=== PATIENT | female | born 1990 | race Caucasian/White ===

== ENCOUNTER 2016-10-11 14:38 | Emergency (ER) | payer MEDICAID ==
--- NOTE | 2016-10-11 15:11 | RADIOLOGY REPORT ---
HISTORY: Trauma. COMPARISON: None. TECHNIQUE: AP view of both calcanei and lateral view of the left calcaneus. FINDINGS: No acute calcaneal fractures are identified. There is a probable tiny bone island in the left calcane us. Otherwise, there is normal bone mineralization. The cortex appears intact. The soft tissues appea r unremarkable. IMPRESSION: No acute fracture. Final Electronic Signature: This report was electronically signed by Marin Blas MD on 10/11/2016 3 :09 PM. michael /
--- NOTE | 2016-10-11 15:12 | RADIOLOGY REPORT ---
HISTORY: Trauma. COMPARISON: AP view of both calcanei and lateral view of the left calcaneus obtained at the same time. TECHNIQUE: Lateral view right calcaneus. FINDINGS: There is no evidence of acute fracture. There is normal bone mineralization. The cortex appears intac t. The soft tissues appear unremarkable. IMPRESSION: No acute fracture. Final Electronic Signature: This report was electronically signed by Marin Blas MD on 10/11/2016 3 :10 PM. michael /
--- NOTE | 2016-10-11 15:23 | ER PHYSICIAN DOCUMENTATION ---
Physician Documentation [facility] Name:Preethi Gonzales Age:25 yrs Sex:Female :1990 Arrival Date:10/11/2016 Time:14:38 Bed5 Private MD: Emanuel Vasquez Disposition: 10/11/16 15:14 Discharged to Home/Self Care. Impression: Foot Contusion. - Condition is Good. - Discharge Instructions: CONTUSION, Foot. - Medical Reconciliation form form. - Follow up: Private Physician; When: As needed; Reason: Continuance of care. - Problem is new. - Symptoms have improved. HPI: 10/11 18:39 This 25 yrs old Female presents to ER via Private Vehicle with complaints of jm Foot Injury. 15:00 The patient presents with an injury, pain, that is acute. The complaints affect the jm Bilateral heels . Context: Mechanism of Injury: Axial Compression the patient can fully bear weight. Onset: The symptom(s)/episode began/occurred today, 2 hour(s) ago. Associated signs and symptoms: Pertinent positives: swelling, Pertinent negatives: calf tenderness. Severity of symptoms: in the emergency department the symptoms are unchanged. The patient has not experienced similar symptoms in the past. Pt was bouldering and fell about 15-20 feet landing on her feet. Pt was able to hike out, but both of her heels hurt. . Historical: - Allergies: No known drug Allergies; - Home Meds: 1. None - PMHx: None; - PSHx: None; - Ebola Screening: : Patient negative for fever greater than or equal to 101.5 degrees Fahrenheit, and additional compatible Ebola Virus Disease symptoms. Patient denies exposure to infectious person. Patient denies travel to an Ebola-affected area in the 21 days before illness onset. No symptoms or risks identified at this time. . - Immunization history: Flu Vaccine < 1 year. - Social history: Smoking status: Patient states was never smoker of tobacco. Patient/guardian denies using alcohol, street drugs, IV drugs, marijuana. ROS: 19:27 MS/extremity: Positive for injury or acute deformity, ecchymosis, pain, swelling. jm 19:27 Abdomen/GI: Negative for abdominal pain, nausea, vomiting. 19:27 Skin: Positive for swelling. Exam: 19:27 Constitutional: The patient appears alert, awake, comfortable. 19:27 ENT: Mouth: is normal, Posterior pharynx: is normal. 19:27 Neck: C-spine: appears grossly normal, Thyroid: appears normal. 19:27 Musculoskeletal/extremity: Extremities: bilateral heel contusions. , ROM: Pulses: are normal with no appreciated deficits. 19:27 Neuro: Mentation: is normal, Memory: is normal. 19:27 Psych: Behavior/mood is pleasant, cooperative, Affect is calm. Vital Signs: 14:51 BP 118 / 72; Pulse 64; Resp 16; Temp 98.4; Pulse Ox 95% on R/A; sc1 MDM: 14:40 Patient medically screened. 15:00 Differential diagnosis: fracture, sprain. Data reviewed: vital signs, nurses notes, jm radiologic studies, plain films, and as a result, I will discharge patient. Test interpretation: by ED physician or midlevel provider: plain radiologic studies. Counseling: I had a detailed discussion with the patient and/or guardian regarding: the historical points, exam findings, and any diagnostic results supporting the discharge/admit diagnosis, radiology results. ED course: No calcaneus fx noted. . 10/11 15:13 Order name: CALCANEUS; [address] [place] [id number] EDMS 10/11 15:13 Order name: CALCANEUS; [address] [place] [id number] EDMS Dispensed Medications: No medications were administered Signatures: Rasheed Hunt, RN VIRGEN tg Susan Arambula RN RN sc1 Emanuel Haines MD MD
--- NOTE | 2016-10-11 15:23 | ER NURSING DOCUMENTATION ---
Nurse's Notes [facility] Name:Preethi Gonzales Age:25 yrs Sex:Female :1990 Arrival Date:10/11/2016 Time:14:38 Bed5 Private MD: Diagnosis:Foot Contusion Presentation: 10/11 14:46 Acuity: VENICE 3 tg 14:47 Presenting complaint: Patient states: approx 3 hours ago, pt was rock climbing on [place] [address] and the rope gave way and pt. fell approx. 20 feet landing on both heels then falling backwards on buttocks. c/o more pain on the right heel than the left. Transition of care: patient was not received from another setting of care. Notified ED Physician of patient's arrival and CC Zaki Jimenez notified. 14:47 Method Of Arrival: Private Vehicle il1 Triage Assessment: 14:51 General: Appears in no apparent distress, well developed, well nourished, well groomed, sc1 Behavior is cooperative, pleasant. Pain: Complains of pain in bilateral heels. Musculoskeletal: Circulation, motion, and sensation intact Capillary refill < 3 seconds. Historical: - Allergies: No known drug Allergies; - Home Meds: 1. None - PMHx: None; - PSHx: None; - Ebola Screening: : Patient negative for fever greater than or equal to 101.5 degrees Fahrenheit, and additional compatible Ebola Virus Disease symptoms. Patient denies exposure to infectious person. Patient denies travel to an Ebola-affected area in the 21 days before illness onset. No symptoms or risks identified at this time. . - Immunization history: Flu Vaccine < 1 year. - Social history: Smoking status: Patient states was never smoker of tobacco. Patient/guardian denies using alcohol, street drugs, IV drugs, marijuana. Screenin:53 Infectious Disease Risk None. Abuse screen: Denies threats or abuse. Nutritional sc1 screening: No deficits noted. Vital Signs: 14:51 BP 118 / 72; Pulse 64; Resp 16; Temp 98.4; Pulse Ox 95% on R/A; sc1 ED Course: 14:39 Patient arrived in ED. arc 14:40 Emanuel Haines MD is Attending Physician. jm 14:46 Triage completed. tg 14:47 Susan Arambula RN is Primary Nurse. sc1 14:50 Patient moved to radiology. ms 14:52 Notified ED Physician of patient's arrival and chief complaint. Dr. Haines notified. Arm il1 band placed on Bed in low position Call Light in Reach Gowned HOB Elevated. X-ray done. 14:53 Affected limb iced. [facility] 15:00 Patient moved back from radiology. ms Administered Medications: No medications were administered Outcome: 15:14 Discharge ordered by . moe 15:21 Discharged to home ambulatory. [facility] 15:21 Condition: stable 15:21 Discharge instructions given to patient, Instructed on discharge instructions, follow up and referral plans. [facility] Demonstrated understanding of instructions. 15:22 Patient left the ED. [facility] 10/12 11:56 Discharge F/U Call: Spoke with: patient. Are you having any pain? yes. Location and lc description of pain: overall sore today How are you managing your pain? Patient is taking medication: ADVIL Heat/Ice Elevation Did your discharge instructions answer all of your questions? yes Overall Care on a scale of 1-10 with 10 being the best care, you rate our care as: Other comments: TOLD TO RETURN IF ANY NUMBNESS TO EXTREMETIES, OR ALARMING SYMPTOMS Signatures: Rasheed Hunt RN RN Keri Justice RN RN Susan Mensah RN RN il1 Emanuel Haines MD MD jm Strickland, Mary ms Tana Veliz, Juarez Reg arc
== END 2016-10-11 15:23 | disposition home or self-care (01) ==
LOC: ER 14:38
DX: S90.31XA Contusion of right foot, initial encounter (principal); S90.32XA Contusion of left foot, initial encounter; W15.XXXA Fall from cliff, initial encounter; Y92.838 Other recreation area as the place of occurrence of the external cause; Y93.31 Activity, mountain climbing, rock climbing and wall climbing
CPT/HCPCS: 99283